=== PATIENT | male | born 1985 ===

== ENCOUNTER 2022-01-31 20:47 | Emergency (ER) | payer SELFPAY ==
[~2022-01-31] VITALS: Ht 172.7 cm; Wt 68.0 kg
[2022-01-31 20:55] VITALS: BP_SYST 118
--- NOTE | 2022-01-31 21:00 | NUR ---
PT SYEDA FROM [facility] EMS REPORTS PT REPORTED SEIZURE, UNWITNESSED. PT A&O X1 AND ONLY FOLLOWING COMMANDS WITH ENCOURAGEMENT AND WITH STIMULI. PT DROSWY AND DROOLING. EMS REPORTS PT HAS HX OF BEHVAIORAL ISSURES. PT LEANN AT 100, MD MADE AWARE.
[2022-01-31 23:20] LABS: MEAN CORPUSCULAR VOLUME 90 fL (79.0-98.0)
[2022-01-31 23:25] LABS: HEMATOCRIT 32.6 % (36-54); HEMOGLOBIN 11.2 g/dL (14.0-18.0); MEAN CORPUSCULAR HEMOGLOBIN 31 pg (27-31); MEAN CORPUSCULAR HGB CONC 34 % (32-36); PLATELET COUNT (AUTO) 107 K/uL (130-430); RED BLOOD CELL COUNT(AUTO) 3.63 MIL/uL (4.2-6.2); RED CELL DISTRIBUTION WIDTH 16.1 % (9.0-15.0); WHITE BLOOD COUNT (AUTO) 4.6 K/uL (4.8-10.8)
--- NOTE | 2022-01-31 23:28 | NUR ---
Seizure precautions in place. Seizure pads applied to art. Side rails up.Placed in room 5 . Placed on dining car conductor, blood pressure machine and pulse oximeter. To gown for exam. Report given to TIFFANI DE LEÓN
--- NOTE | 2022-02-01 00:10 | NUR ---
PT ASSESSED [place] ANSWERS QUESTIONS APPROPRIATELY BUT TEND TO BE SLEEPY MOST OF THE TIME.
[2022-02-01 00:37] LABS: ANION GAP 4 (5-15); CALCIUM 8.8 mg/dL (8.4-11.0); CHLORIDE 106 mmol/L (98-107); CREATININE 0.78 mg/dL (0.55-1.30); GLUCOSE 139 mg/dL (70-99); UREA NITROGEN, BLOOD 13 mg/dL (8-21)
[2022-02-01 00:46] LABS: ALANINE AMINOTRANSFERASE 29 U/L (12-78); ALBUMIN 3.4 g/dL (3.4-4.8); ASPARTATE AMINOTRANSFERASE 34 U/L (10-37); TOTAL BILIRUBIN 0.2 mg/dL (0.0-1.0)
--- NOTE | 2022-02-01 00:46 | NUR ---
SLEERING IN [place]ER[place] COMFORTABLE VSS
[2022-02-01 00:47] LABS: ACETAMINOPHEN < 1 ug/mL (1-30); GFR AFRICAN AMERICAN 144 mL/min (>90)
[2022-02-01 00:48] LABS: ALCOHOL, BLOOD < 3 mg/dL (<10)
[2022-02-01 02:47] LABS: BAND % (MANUAL) 0 % (0-6)
[2022-02-01 02:48] LABS: ATYPICAL LYMPHOCYTES % 3 % (0-0); BASOPHILS % (MANUAL) 0 % (0-2); BLASTS, MANUAL % 0 % (0-0); EOSINOPHILS % (MANUAL) 0 % (0-7); LYMPHOCYTES % (MANUAL) 56 % (20-46); METAMYELOCYTES % 0 % (0-0); MONOCYTES % (MANUAL) 13 % (0-11); MYELOCYTES % 0 % (0-0); OTHER CELLS,MANUAL % 0 (0-0); PROMYELOCYTES % 0 % (0-0)
[2022-02-01 04:34] VITALS: BP_SYST 122
--- NOTE | 2022-02-01 04:35 | NUR ---
ASLEEP, REMAINS AROUSABLE AND ANSWER QUESTIONS APPROPRIATELY, VSS
--- NOTE | 2022-02-01 07:09 | NUR ---
REPORT RECEIVED FROM GENET NIXON. PATIENT LYING ON GURNEY IN NO ACUTE DISTRESS. CARE TO BE PROVIDED ORDERED.
--- NOTE | 2022-02-01 08:22 | NUR ---
Patient given written and verbal discharge instructions and verbalizes understanding. ER DR. IRMA CHATMAN discussed with patient the results and treatment provided. Patient in stable condition. ID arm band removed. Patient educated on pain management and to follow up with PMD. Pain Scale 0/10. Opportunity for questions provided and answered. Medication side effect fact sheet provided.
== END 2022-02-01 08:21 | disposition home or self-care (01) ==
LOC: SED 20:47
DX: R46.89 Other symptoms and signs involving appearance and behavior (principal); Z59.00 Homelessness unspecified; Z79.899 Other long term (current) drug therapy
CPT/HCPCS: 99283; 85027; 80053; 85007; 36415; G0482; G0480; G0481